=== PATIENT | female | born 1945 | race Two or more races ===

== ENCOUNTER 2021-07-22 12:25 | Outpatient (CLI) | payer OTHER | END 2021-07-22 12:34 | disposition home or self-care (01) | LOC: MAMO-SONO 12:25 | PROVIDERS: ATTEND Obstetrics & Gynecology | DX: N60.11 Diffuse cystic mastopathy of right breast (principal) ==

== ENCOUNTER → 2021-07-22 14:21 | Outpatient (CLI) | payer OTHER | END | disposition home or self-care (01) | LOC: NUCLEAR 14:21 | PROVIDERS: ATTEND Obstetrics & Gynecology | DX: M81.0 Age-related osteoporosis without current pathological fracture (principal) ==

== ENCOUNTER 2021-07-30 13:35 | Outpatient (CLI) | payer OTHER | END 2021-07-30 13:43 | disposition home or self-care (01) | LOC: RAD 13:35 | PROVIDERS: ATTEND Family Medicine | DX: M17.12 Unilateral primary osteoarthritis, left knee (principal) ==